=== PATIENT | female | born 1975 ===

== ENCOUNTER 2018-10-24 14:51 | Outpatient (CLI) | payer OTHER | END 2018-10-24 14:52 | disposition home or self-care (01) | LOC: C.MAMMO 14:51 | DX: Z12.31 Encounter for screening mammogram for malignant neoplasm of breast (principal) ==

== ENCOUNTER 2019-01-04 12:43 | Outpatient (CLI) | payer OTHER | END 2019-01-04 12:44 | disposition home or self-care (01) | LOC: C.MAMMO 12:43 | DX: R92.2 Inconclusive mammogram (principal) ==